=== PATIENT | male | born 1990 | race Asian ===

== ENCOUNTER 2019-03-30 19:55 | Emergency (ER) | payer SELFPAY ==
[~2019-03-30] VITALS: Ht 167.6 cm; Wt 94.3 kg
[2019-03-30 19:58] VITALS: BP 132/75; Ht 167.6 cm; Wt 94.3 kg
== END 2019-03-30 23:42 | disposition home or self-care (01) ==
LOC: ED 19:55
DX: S81.812A Laceration without foreign body, left lower leg, initial encounter (principal); W17.89XA Other fall from one level to another, initial encounter; Y93.89 Activity, other specified; Y92.89 Other specified places as the place of occurrence of the external cause; Y99.8 Other external cause status
CPT/HCPCS: 90715; J2001